=== PATIENT | female | born 1960 | race Caucasian/White ===

== ENCOUNTER 2020-12-16 08:32 | Outpatient (CLI) | payer BC | END 2020-12-16 08:33 | disposition home or self-care (01) | LOC: CSHCT 08:32 | PROVIDERS: ATTEND Internal Medicine Hematology & Oncology | DX: C54.1 Malignant neoplasm of endometrium (principal); R97.1 Elevated cancer antigen 125 [CA 125]; D49.0 Neoplasm of unspecified behavior of digestive system; N13.8 Other obstructive and reflux uropathy; R18.8 Other ascites | CPT/HCPCS: 71260; 74177; 82565 ==

== ENCOUNTER 2021-08-07 13:45 | Outpatient (CLI) | payer BC | END 2021-08-07 13:46 | disposition home or self-care (01) | LOC: CSHULT 13:45 | PROVIDERS: ATTEND Urology | DX: C54.1 Malignant neoplasm of endometrium (principal); N13.30 Unspecified hydronephrosis | CPT/HCPCS: 76770 ==

== ENCOUNTER 2022-09-10 09:51 | Outpatient (CLI) | payer BC | END 2022-09-10 09:52 | disposition home or self-care (01) | LOC: CSHMAMMO 09:51 | PROVIDERS: ATTEND Internal Medicine | DX: Z12.31 Encounter for screening mammogram for malignant neoplasm of breast (principal); Z13.820 Encounter for screening for osteoporosis; Z78.0 Asymptomatic menopausal state; M85.89 Other specified disorders of bone density and structure, multiple sites | CPT/HCPCS: 77063; 77067; 77080 ==

== ENCOUNTER 2022-10-20 10:01 | Outpatient (CLI) | payer BC ==
[2022-10-20] MEDS ORDERED: Iopamidol 300 61% 100 ML VIAL FS ONE (10:34)
== END 2022-10-20 10:02 | disposition home or self-care (01) ==
LOC: CSHCT 10:01
PROVIDERS: ATTEND Internal Medicine Hematology & Oncology
DX: C54.1 Malignant neoplasm of endometrium (principal); J84.10 Pulmonary fibrosis, unspecified; N13.30 Unspecified hydronephrosis
CPT/HCPCS: 71260; 74177; 82565; Q9967